=== PATIENT | female | born 1980 | race Caucasian/White ===

== ENCOUNTER → 2016-03-13 | Outpatient (CLI) | payer BC ==
[2016-03-13 12:44] LABS: ALT/SGPT 21 U/L (12-78); AST/SGOT 13 U/L (15-37); BLOOD UREA NITROGEN 21 mg/dl (7-18); BUN/CREATININE RATIO 22.7 (10-20); CARBON DIOXIDE 26 mmol/L (21-32); CHLORIDE 106 mmol/L (98-107); CHOLESTEROL 195 mg/dl (0-200); CREATININE 0.92 mg/dl (0.60-1.20); GLUCOSE 86 mg/dl (70-99); POTASSIUM 4.3 mmol/L (3.5-5.1); SODIUM 140 mmol/L (136-145)
[2016-03-13 12:55] LABS: ALB/GLOB RATIO 1.1 (0.9-2); ALKALINE PHOSPHATASE 60 U/L (45-117); CHOLESTEROL/HDL RATIO 2.6; HDL CHOLESTEROL 76 mg/dl; LDL CHOLESTEROL CALCULATED 108 mg/dl; TRIGLYCERIDES 53 mg/dl (0-150); VERY LOW DENSITY LIPOPROT CALC 11 mg/dl
== END | disposition home or self-care (01) ==
LOC: C.LABBFT 07:40
PROVIDERS: ATTEND Internal Medicine
DX: E78.5 Hyperlipidemia, unspecified (principal)

== ENCOUNTER → 2016-03-31 | Outpatient (CLI) | payer BC | END | disposition home or self-care (01) | LOC: C.PAPS 11:39 | PROVIDERS: ATTEND Obstetrics & Gynecology | DX: Z01.419 Encounter for gynecological examination (general) (routine) without abnormal findings (principal) ==

== ENCOUNTER → 2016-08-15 | Outpatient (CLI) | payer BC ==
[2016-08-18 02:02] LABS: CHLAMYDIA TRACH RNA*** NOT DETECTED (NOT DETECTED); GC (NEIS GONORRHOEAE)RNA** NOT DETECTED (NOT DETECTED)
== END | disposition home or self-care (01) ==
LOC: C.LABSPEC 17:23
PROVIDERS: ATTEND Physician Assistant
DX: Z30.430 Encounter for insertion of intrauterine contraceptive device (principal)

== ENCOUNTER → 2016-08-15 | Outpatient (CLI) | payer BC ==
[2016-08-15 09:38] LABS: PREG INTERNAL NEGATIVE QC NEG CLEAR BACKGROUND; PREG INTERNAL POSITIVE QC POS CONTROL LINE
== END | disposition home or self-care (01) ==
LOC: C.LAB1850 06:51
PROVIDERS: ATTEND Physician Assistant
DX: Z30.9 Encounter for contraceptive management, unspecified (principal)

== ENCOUNTER → 2017-09-17 | Outpatient (CLI) | payer BC | END | disposition home or self-care (01) | LOC: C.LAB1850 12:28 | PROVIDERS: ATTEND Obstetrics & Gynecology | DX: O09.522 Supervision of elderly multigravida, second trimester (principal) ==

== ENCOUNTER → 2017-09-18 | Outpatient (CLI) | payer BC ==
[2017-09-20 16:32] LABS: QUANTIF MITOGEN-NIL 8.22 IU/ML; QUANTIFERON NEGATIVE (NEGATIVE); QUANTIFERON NIL 0.02 IU/ML
== END | disposition home or self-care (01) ==
LOC: C.LABBC 11:23
PROVIDERS: ATTEND Family Medicine Adult Medicine
DX: Z00.00 Encounter for general adult medical examination without abnormal findings (principal)

== ENCOUNTER 2018-03-18 20:39 | Inpatient (IN) ==
[2018-03-18] MEDS ORDERED: LACTATED RINGER'S 1,000 ML IV PRN ×2 (22:06→22:11)
[2018-03-18] MEDS ORDERED: OXYTOCIN 30 UNITS/500 ML BAG IV PRN ×2 (22:06→22:11)
--- NOTE | 2018-03-18 22:22 | History & Physical Report ---
Date of Service March 18, 2018 Assessment & Plan (1) Post term : We will begin pitocin augmentation of her current contraction pattern that ranges from q 2minutes to 8 minutes apart anticipate vaginal Present on Admission?: Yes History of Present Illness Primary Care Provider: Андрей Spencer MD Patient is a 37 yo white female EDC 03/12/18 who presents with irregular contractions with no cervical change from last exam in the office last week. no blood show or SPROM. baby has been active. She was on for induction of labor on 03/20 because of post term . She was given the option of going home at this time, walking for 2 hours & having a repeat cervical check or starting pitocing induction now. Patient has elected to start pitocin induction now. GBS negative, blood type A(+) complicated by AMA & nephrolithiasis. Allergies Allergy/AdvReac Type Severity Reaction Status Date / Time No Known Allergies Allergy Unverified 03/18/18 21:42 Home Medications Home Medications Medication Instructions Recorded Confirmed Type vit-iron fum-folic ac 1 tab PO DAILY 03/18/18 03/18/18 History [ Vitamin] Patient History Medical History Anxiety IBS (irritable bowel syndrome) No significant past medical history Surgical History No significant past surgical history Social History marital status: Current Living Situation: Family current occupational status: employed Other Information That Helps Us Care for You: No Feels Safe at Home: Yes Safety Concerns: Feels Safe At This Time Smoking Status: Never smoker Hx Alcohol Use: No Hx Substance Use: No Beliefs That Will Affect Care: None Preferred Language: Persian Communication Ability: Effective Review of Systems All systems reviewed & are unremarkable except as noted in HPI & below Physical Exam 2 Vital Signs (Past 24 Hours): Last Vital Signs Temp 36.6 C 03/18/18 20:53 Pulse 90 03/18/18 20:54 Resp 20 03/18/18 20:53 BP 130/78 03/18/18 20:54 Constitutional: WD/WN, vitals as above Respiratory: normal respiratory effort, lungs clear to auscultation Cardiovascular: RRR, no murmur, no edema Genitourinary: OB Exam Abdomen: + estimated weight (7-8 pounfd) Manual OB Exam: + cervical dilation 2 cm, + cervical effacement 80% and + station (very posterior) -1 OB Exam Monitor Tracing: + external FHT monitor used, + external uterine monitor used, + category I and + normal FHT variability
[2018-03-18] MEDS: LACTATED RINGER'S 1,000 ML IV SCH (22:32)
[2018-03-18 22:34] LABS: Hematocrit (blood only) 33.4 % (37-47); Hemoglobin 11.1 g/dL (12.0-16.0); Mean Corpuscular Volume 87.4 fL (80-100); Mean Platelet Volume 9.3 fL (7.4-10.4); Platelet Count 220 K/uL (130-400); RDW Coefficient of Variation 14.3 % (11.5-14.5); RDW Standard Deviation 44.7 fL (36.4-46.3); Red Blood Count 3.82 M/uL (4.2-5.4); White Blood Count 10.19 K/uL (4.8-10.8)
[2018-03-18 22:54] LABS: Mean Corpuscular Hgb Conc 33.2 g/dL (32-36)
[2018-03-18] MEDS ORDERED: BUPIVACAINE 0.25% 30 ML VIAL ONE (23:22)
[2018-03-18] MEDS ORDERED: ePHEDrine sulfate 50 MG/ML AMP ONE (23:22)
[2018-03-18] MEDS ORDERED: fentaNYL 2MCG/ML ROPIV 1.25MG/ML 100 ML BAG EPI ONE (23:23)
[2018-03-18] MEDS ORDERED: fentaNYL citrate 100 MCG/2 ML VIAL ONE (23:23)
--- NOTE | 2018-03-18 23:46 | Anesthesiology Consultation ---
Date of Service March 18, 2018 Assessment & Plan (1) Encounter for pre-operative examination: Chart Review Chart Review: Acceptable Risk for Labor Epidural Consults Requested none ASA ASA2 Proposed Anesthesia Anesthesia Type: Labor Epidural Risk / Benefits Reviewed With: PT / POA / Parent / Guardian, Accepts Plan and Informed Consent Obtained History Height/Weight Height: 5 ft 8 in Weight: 87.543 kg Allergies Allergy/AdvReac Type Severity Reaction Status Date / Time No Known Allergies Allergy Unverified 03/18/18 21:42 Medications Home Medications Medication Instructions Recorded Confirmed Last Taken vit-iron fum-folic ac 1 tab PO DAILY 03/18/18 03/18/18 03/18/18 08:00 [ Vitamin] Active Medications Generic Name Dose Route Start Last Admin Trade Name Freq PRN Reason Stop Dose Admin Lactated Ringer's 1,000 mls @ 125 mls/hr 03/18/18 22:15 03/18/18 23:20 Lr IV 03/20/18 22:14 999 mls/hr .Q8H CHRISTINE Infusion Oxytocin 30 units in 500 mls @ 4 mls/hr 03/18/18 22:11 03/18/18 23:20 Pitocin IV 03/20/18 22:10 0.24 units/hr .Q24H PRN 4 mls/hr Labor Induction/Augmentation Titration Protocol 0.24 UNITS/HR Past Medical History Medical History Anxiety IBS (irritable bowel syndrome) No significant past medical history Past Surgical History Surgical History No significant past surgical history Past Anesthesia History No Hx of Anesthesia Complications and No Family Hx of Anesthesia Complications History of PONV No Motion Sickness Screening History of Motion Sickness: No Social History Smoking Status: Never smoker Hx Alcohol Use: No Hx Substance Use: No Exercise / Class Metabolic Activity II 4-5 Yardwork/Stairs/Walk up hill Physical Exam Vital Signs Last Vital Signs Temp 97.5 F L 03/18/18 22:50 Pulse 83 03/18/18 22:50 Resp 18 03/18/18 22:50 BP 111/61 03/18/18 22:50 ENMT Mouth: no dentition abnormality Thyromental Distance: > or= 3.5 Finger Breadths Mallampati Class: II Neck normal visual inspection Respiratory normal respiratory effort Auscultation: lungs clear to auscultation bilaterally Cardiovascular Rate/Rhythm: regular rate and regular rhythm Testing Laboratory Results 03/18/18 22:23
[2018-03-19] MEDS ORDERED: NALOXONE HCL 0.4 MG/1 ML VIAL/CARP IV PRN (00:10)
[2018-03-19] MEDS ORDERED: DiphenhydrAMINE HCL 50 MG/ML VIAL IV PRN (00:10)
[2018-03-19] MEDS ORDERED: NALBUPHINE HCL INJ 10 MG/ML AMP IV PRN (00:10)
[2018-03-19] MEDS ORDERED: NALOXONE HCL 1 MG in SODIUM CHLORIDE 0.9% 1000ML 1,000 ML IV PRN (00:10)
[2018-03-19] MEDS ORDERED: ePHEDrine sulfate 50 MG/ML AMP IV PRN (00:10)
[2018-03-19] MEDS ORDERED: ONDANSETRON INJ 2 MG/ML 2 ML VIAL IV PRN (00:10)
[2018-03-19] MEDS ORDERED: LACTATED RINGER'S 1,000 ML IV PRN (00:10)
[2018-03-19] MEDS: LACTATED RINGER'S 1,000 ML IV SCH ×2 (00:20→07:58)
[2018-03-19] MEDS: fentaNYL 2MCG/ML ROPIV 1.25MG/ML 100 ML BAG EPI PRN ×3 (04:11→07:01)
[2018-03-19] MEDS ORDERED: Nursing to Pharmacy Communication ONE (04:17)
[2018-03-19] MEDS ORDERED: fentaNYL citrate 100 MCG/2 ML VIAL ONE ×2 (05:09→07:28)
[2018-03-19] MEDS ORDERED: fentaNYL citrate 100 MCG/2 ML VIAL IV STA (06:56)
[2018-03-19] MEDS ORDERED: BUPIVACAINE 0.25% 30 ML VIAL ONE ×2 (07:22→11:10)
--- NOTE | 2018-03-19 10:09 | Obstetrical Progress Note ---
Date of Service March 19, 2018 Assessment & Plan (1) Post term : pushing effectively in 2nd stage. suspect OP presentation. would like to have her change positions but epidural causing alot of lack of motor fxn in right leg. fhts categ 2. Subjective pushing effectively Physical Exam 2 Vital Signs (Past 24 Hours): Last Vital Signs Temp 36.6 C 03/19/18 09:00 Pulse 101 H 03/19/18 10:02 Resp 20 03/19/18 09:00 BP 105/61 03/19/18 09:55 Pulse Ox 93 03/19/18 10:02 Genitourinary: Manual OB Exam: + cervical dilation 10 cm, + cervical effacement 100% and + station + 3 OB Exam Monitor Tracing: + external FHT monitor used (150 moderate variability), + early decelerations present and + variable decelerations
[2018-03-19] MEDS ORDERED: BENZOCAINE 20% AER SPR 82.5 GM CAN EXT PRN (13:23)
[2018-03-19] MEDS ORDERED: OXYTOCIN 30 UNITS/500 ML BAG IV PRN (13:23)
[2018-03-19] MEDS ORDERED: HYDROCORTISONE ACETATE 25 MG SUPP PR PRN (13:23)
[2018-03-19] MEDS ORDERED: SUPERCREAM 0.870% 15 GM JAR EXT PRN (13:23)
[2018-03-19] MEDS ORDERED: OXYTOCIN 20 UNITS in LACTATED RINGER'S 1,000 ML IV SCH (13:23)
[2018-03-19] MEDS ORDERED: ACETAMINOPHEN 325 MG TAB PO PRN (13:23)
[2018-03-19] MEDS ORDERED: OXYCODONE/ACETAMINOPHEN 5mg/325mg TAB PO PRN (13:23)
[2018-03-19] MEDS ORDERED: miSOPROStol 200 MCG TAB PR ONE (13:23)
[2018-03-19] MEDS ORDERED: DIPHTHERIA/TETANUS/PERTUSSIS 0.5 ML SYR/VIAL IM ONE (13:23)
--- NOTE | 2018-03-19 13:42 | Delivery Summary ---
DATE OF OPERATION: 03/19/2018 The patient had dilated to complete and was pushing for more than 4 hours to deliver a viable female , Apgars 8 and 9 via over a small vaginal laceration from the ROP position. Mouth and nose bulb suctioned at the perineum, and shoulders and body delivered with ease. vigorous and crying at . Cord was clamped at 30 seconds of life and to maternal abdomen where the cord was then doubly clamped and cut. Placenta delivered spontaneous and intact, 3-vessel cord. Hemostasis inadequate with dilute Pitocin alone, and therefore, 800 mcg of rectal Cytotec administered. The bladder had been drained under sterile conditions for 150 mL of urine. Hemostasis was becoming adequate. The cervix and sulci were intact. The vaginal laceration was reapproximated with 3-0 Vicryl in the usual fashion. EBL 300 mL. Mother and baby stable in recovery. I attest to the content of the Intraoperative Record and any orders documented therein. Any exception s are noted below.
--- NOTE | 2018-03-19 14:36 | Anesthesia Procedure Note ---
Date of Service March 19, 2018 Anesthesia Post Epidural Note Vital Signs Vital Signs: Temp Pulse Resp BP Pulse Ox 03/19/18 14:25 100 H 128/72 03/19/18 13:55 95 H 125/69 03/19/18 13:40 88 122/74 03/19/18 13:25 76 119/72 03/19/18 13:10 79 113/71 03/19/18 13:09 20 03/19/18 12:55 81 121/63 03/19/18 12:54 20 03/19/18 12:41 99 H 114/58 L 03/19/18 12:40 20 03/19/18 12:25 80 130/62 03/19/18 12:17 108 H 95 03/19/18 12:12 85 95 03/19/18 12:11 77 93/51 L 03/19/18 12:09 75 93 03/19/18 12:07 111 H 94 03/19/18 12:03 81 92 03/19/18 12:02 85 95 03/19/18 11:57 86 96 03/19/18 11:56 100 H 162/83 H 03/19/18 11:52 114 H 84 L 03/19/18 11:46 93 H 90 03/19/18 11:45 89 96 03/19/18 11:40 99 H 111/60 03/19/18 11:38 80 95 03/19/18 11:34 116 H 93 03/19/18 11:33 95 H 95 03/19/18 11:29 96 H 92 03/19/18 11:28 113 H 97 03/19/18 11:26 95 H 108/57 L 03/19/18 11:23 108 H 97 03/19/18 11:21 94 H 93 03/19/18 11:18 99 H 95 03/19/18 11:16 36.6 C 03/19/18 11:15 94 H 92 03/19/18 11:13 97 H 97 03/19/18 11:10 100 H 108/59 L 03/19/18 11:08 99 H 97 03/19/18 11:03 95 H 96 03/19/18 10:58 96 H 98 03/19/18 10:52 96 H 98 03/19/18 10:47 98 H 97 03/19/18 10:45 98 H 94 03/19/18 10:42 86 98 03/19/18 10:37 88 97 03/19/18 10:32 94 H 97 03/19/18 10:30 97 H 92 03/19/18 10:27 91 H 97 03/19/18 10:26 83 106/58 L 03/19/18 10:23 101 H 93 03/19/18 10:22 98 H 96 03/19/18 10:17 92 H 98 03/19/18 10:12 77 95 03/19/18 10:10 72 109/71 03/19/18 10:08 83 94 03/19/18 10:07 78 95 03/19/18 10:02 101 H 93 03/19/18 09:57 101 H 98 03/19/18 09:55 69 105/61 03/19/18 09:52 105 H 100 03/19/18 09:48 89 92 03/19/18 09:47 89 94 03/19/18 09:42 101 H 99 03/19/18 09:40 90 109/59 L 03/19/18 09:37 88 99 03/19/18 09:32 102 H 100 03/19/18 09:29 81 91 03/19/18 09:27 89 99 03/19/18 09:26 89 109/68 03/19/18 09:23 82 92 03/19/18 09:22 81 98 03/19/18 09:17 81 97 03/19/18 09:12 89 98 03/19/18 09:11 87 115/59 L 03/19/18 09:07 77 99 03/19/18 09:02 78 98 03/19/18 09:00 36.6 C 20 03/19/18 08:57 84 98 03/19/18 08:56 90 115/63 03/19/18 08:53 71 101/54 L 03/19/18 08:52 90 96 03/19/18 08:47 80 99 03/19/18 08:42 102 H 98 03/19/18 08:37 87 100 03/19/18 08:32 81 98 03/19/18 08:27 95 H 98 03/19/18 08:26 89 117/69 03/19/18 08:22 88 98 03/19/18 08:17 97 H 99 03/19/18 08:14 97 H 93 03/19/18 08:12 77 97 03/19/18 08:11 90 101/65 03/19/18 08:07 89 99 03/19/18 08:02 101 H 98 03/19/18 07:57 94 H 100 03/19/18 07:55 83 125/63 03/19/18 07:52 85 113/61 100 03/19/18 07:50 83 114/61 03/19/18 07:48 101 H 117/58 L 03/19/18 07:47 99 H 148/91 H 100 03/19/18 07:45 66 102/53 L 03/19/18 07:42 67 97 03/19/18 07:40 100 H 104/67 93 03/19/18 07:38 78 114/65 03/19/18 07:37 71 98 03/19/18 07:36 118/78 03/19/18 07:34 71 118/73 03/19/18 07:32 101 H 113/73 95 03/19/18 07:29 69 114/72 03/19/18 07:27 79 98 03/19/18 07:26 67 114/72 03/19/18 07:22 70 98 03/19/18 07:17 80 96 03/19/18 07:14 78 116/71 03/19/18 07:12 86 98 03/19/18 07:07 85 99 03/19/18 07:04 80 111/60 03/19/18 07:02 67 98 03/19/18 07:00 36.6 C 16 03/19/18 06:58 85 119/64 03/19/18 06:57 84 98 03/19/18 06:52 66 97 03/19/18 06:47 73 96 03/19/18 06:45 77 121/59 L 03/19/18 06:42 79 97 03/19/18 06:37 77 99 03/19/18 06:32 81 99 03/19/18 06:30 18 03/19/18 06:28 74 103/58 L 03/19/18 06:27 76 99 03/19/18 06:22 78 97 03/19/18 06:17 74 96 03/19/18 06:13 78 95/56 L 03/19/18 06:12 63 95 03/19/18 06:07 66 95 03/19/18 06:06 66 94 03/19/18 06:02 81 97 03/19/18 05:58 75 18 101/53 L 03/19/18 05:57 73 96 03/19/18 05:54 72 94 03/19/18 05:52 70 96 03/19/18 05:49 67 94 03/19/18 05:47 71 97 03/19/18 05:43 82 110/52 L 03/19/18 05:42 78 98 03/19/18 05:37 73 97/61 L 98 03/19/18 05:32 78 131/66 97 03/19/18 05:30 18 03/19/18 05:27 75 132/55 L 97 03/19/18 05:24 92 H 103/62 03/19/18 05:22 81 122/72 96 03/19/18 05:21 80 109/78 03/19/18 05:18 85 106/66 03/19/18 05:17 86 96 03/19/18 05:16 78 119/75 03/19/18 05:12 79 99 03/19/18 05:07 88 95 03/19/18 05:02 69 98 03/19/18 04:58 86 18 107/57 L 03/19/18 04:57 89 95 03/19/18 04:56 67 94 03/19/18 04:52 66 97 03/19/18 04:48 77 93 03/19/18 04:47 76 96 03/19/18 04:44 73 115/62 03/19/18 04:42 63 97 03/19/18 04:37 61 97 03/19/18 04:36 81 94 03/19/18 04:32 68 97 03/19/18 04:30 55 L 18 115/55 L 94 03/19/18 04:27 93 H 96 03/19/18 04:22 73 98 03/19/18 04:17 69 96 03/19/18 04:13 83 107/66 03/19/18 04:12 87 96 03/19/18 04:07 69 99 03/19/18 04:02 79 98 03/19/18 03:58 76 108/62 03/19/18 03:57 70 98 03/19/18 03:52 79 97 03/19/18 03:47 79 98 03/19/18 03:43 87 112/55 L 03/19/18 03:42 73 98 03/19/18 03:37 75 97 03/19/18 03:32 88 97 03/19/18 03:30 71 112/62 03/19/18 03:27 78 97 03/19/18 03:22 69 95 03/19/18 03:17 68 97 03/19/18 03:13 83 102/61 03/19/18 03:12 77 97 03/19/18 03:07 86 97 03/19/18 03:02 83 97 03/19/18 03:00 18 03/19/18 02:58 76 106/63 03/19/18 02:57 69 96 03/19/18 02:52 77 95 03/19/18 02:47 84 97 03/19/18 02:44 70 106/59 L 03/19/18 02:42 78 96 03/19/18 02:37 79 97 03/19/18 02:32 80 96 03/19/18 02:30 36.7 C 03/19/18 02:29 74 18 98/54 L 03/19/18 02:28 79 94 03/19/18 02:27 86 96 03/19/18 02:22 78 96 03/19/18 02:17 86 97 03/19/18 02:13 96 H 102/61 03/19/18 02:12 68 95 03/19/18 02:07 103 H 97 03/19/18 02:02 77 96 03/19/18 02:00 18 03/19/18 01:59 97 H 94/59 L 03/19/18 01:57 81 97 03/19/18 01:52 89 96 03/19/18 01:48 78 93 03/19/18 01:47 90 96 03/19/18 01:43 82 106/57 L 03/19/18 01:42 80 95 03/19/18 01:41 82 94 03/19/18 01:37 72 95 03/19/18 01:34 76 94 03/19/18 01:32 91 H 97 03/19/18 01:30 18 03/19/18 01:28 96 H 104/57 L 03/19/18 01:27 93 H 94 03/19/18 01:22 78 96 03/19/18 01:17 79 96 03/19/18 01:15 80 94 03/19/18 01:13 90 112/60 03/19/18 01:12 89 96 03/19/18 01:07 76 97 03/19/18 01:02 86 97 03/19/18 01:00 20 03/19/18 00:59 99 H 116/75 03/19/18 00:57 79 96 03/19/18 00:52 80 96 03/19/18 00:47 87 97 03/19/18 00:44 82 114/70 03/19/18 00:42 80 95 03/19/18 00:37 79 97 03/19/18 00:32 91 H 97 03/19/18 00:30 36.7 C 18 03/19/18 00:28 87 127/71 03/19/18 00:27 80 97 03/19/18 00:25 20 03/19/18 00:24 81 117/71 03/19/18 00:22 98 H 96 03/19/18 00:20 20 03/19/18 00:18 88 110/66 94 03/19/18 00:17 98 H 96 03/19/18 00:16 95 H 112/73 03/19/18 00:15 20 03/19/18 00:14 79 111/74 03/19/18 00:12 94 H 110/69 96 03/19/18 00:10 95 H 18 114/68 03/19/18 00:08 81 119/68 03/19/18 00:07 79 122/80 98 03/19/18 00:05 18 03/19/18 00:04 94 H 143/81 H 03/19/18 00:02 121 H 98 03/18/18 23:57 92 H 100 03/18/18 23:52 99 H 100 03/18/18 23:47 98 H 98 03/18/18 23:45 87 120/73 03/18/18 22:50 36.4 C L 83 18 111/61 03/18/18 20:54 90 130/78 03/18/18 20:53 36.6 C 90 20 130/78 Pain Intensity Bilateral Back: Pain Intensity: 0 Notes Mental Status: alert / awake / arousable Patient Amnestic to Procedure: No Nausea / Vomiting: adequately controlled Pain: adequately controlled Airway Patency, RR, SpO2: stable & adequate BP & HR: stable & adequate Hydration State: stable & adequate Anesthetic Complications: no major complications apparent Epidural: Removed without complications and With tip intact Notes: Pt doing well. Epidural site looks clean/dry/intact. No signs of edema or erythema.
[2018-03-19] MEDS: IBUPROFEN 600 MG TAB PO PRN ×2 (15:12→22:08)
[2018-03-19] MEDS: DOCUSATE SODIUM 100 MG CAP PO SCH (22:07)
[2018-03-20] MEDS: IBUPROFEN 600 MG TAB PO PRN ×5 (02:11→20:48)
--- NOTE | 2018-03-20 06:29 | Obstetrical Progress Note ---
Date of Service <Benja Becerra MD - Last Filed: 03/20/18 06:49> March 20, 2018 Assessment & Plan <Benja Becerra MD - Last Filed: 03/20/18 06:49> (1) Encounter for induction of labor: Leah is a 37 yo white female EDC 03/12/18 who presented with irregular contractions with no cervical change from last exam in the office and underwent induction of labor now s/p NIVD PPD#1. -GBS negative, blood type A(+) complicated by AMA & nephrolithiasis. - Feels well today. Eating well, voiding well, ambulating well. - Some breast tenderness, no signs of mastitis. Recommend routine breast care, salves/ice if needed. - Pain well controlled with ibuprofen 600mg Q4H PRN. - Routine care - After discharge will have [address] Meier. (2) Post-term , 40-42 weeks of gestation: Subjective <Benja Becerra MD - Last Filed: 03/20/18 06:49> Ambulation: ambulating normally Voiding: no voiding problems Passing Gas:: Yes Diet Tolerance:: regular diet Lochia:: Moderate (about equal to a period, red) Feeding Type:: breast feeding Current Pain Level(1-10): 3 Review of Systems Denies fever, chills, sweats Denies shortness of breath, difficulty breathing, chest pain, palpitations, chest pressure. Denies breast pain. Denies dysuria. Denies headache. Physical Exam <Benja Becerra MD - Last Filed: 03/20/18 06:49> Vital Signs (Past 24 Hours) Last Vital Signs Temp 36.6 C 03/20/18 03:45 Pulse 73 03/20/18 03:45 Resp 18 03/20/18 03:45 BP 114/62 03/20/18 03:45 Pulse Ox 95 03/19/18 12:17 General: Alert, oriented. No acute distress. Cardiac: Regular rate and rhythm, no murmurs/rubs/gallops. Respiratory: Clear to auscultation anterior and posteriorly, no wheezes/rales/ rhonchi. No increased work of breathing. Symmetrical chest rise. No respiratory distress. Abdomen: Soft, nontender, nondistended. Bowel sounds present. Uterus: Uterine fundus firm, palpable 2-3cm below umbilicus. Lower Extremities: No lower extremity edema or swelling. No deep calf pain. Dustin's negative bilaterally. Results & Data <Benja Becerra MD - Last Filed: 03/20/18 06:49> Medications Administered Current Inpatient Medications Acetaminophen (Tylenol) 650 mg PO Q6H PRN PRN Reason: Pain/LEONARD/Fever Stop: 04/18/18 13:22 Benzocaine (Dermoplast Pain Relieving [place]) 1 appln EXT PRN PRN PRN Reason: Perineal Discomfort Stop: 04/18/18 13:22 Last Admin: 03/19/18 16:17 Dose: 82.5 appln Cocaine HCl (Supercream 0.870%) 1 gm EXT BID PRN PRN Reason: Hemorrhoidal Inflammation Stop: 04/02/18 13:22 Docusate Sodium (Colace) 100 mg PO BID [facility] Stop: 04/18/18 20:59 Last Admin: 03/19/18 22:07 Dose: 100 mg Hydrocortisone (Anusol Hc) 25 mg CA BID PRN PRN Reason: Hemorrhoidal Inflammation Stop: 04/18/18 13:22 Oxytocin 20 units/ Lactated (Ringer's) 1,002 mls @ 125 mls/hr IV .Q8H1M [facility] Stop: 04/18/18 13:22 Last Infusion: 03/19/18 23:30 Dose: Infused Oxytocin (Pitocin) 30 units in 500 mls @ 333.333 mls/hr IV .Q1H30M PRN; Protocol PRN Reason: BLEEDING CONTROL Stop: 04/18/18 13:22 Ibuprofen (Motrin) 600 mg PO Q4H PRN PRN Reason: Pain/LEONARD/Cramping/Fever Stop: 04/18/18 13:22 Last Admin: 03/20/18 02:11 Dose: 600 mg Oxycodone/Acetaminophen (Percocet 5mg/325mg) 1 tab PO Q4H PRN PRN Reason: Pain not relieved by... Stop: 04/02/18 13:22 Last Admin: 03/19/18 16:20 Dose: 1 tab Prenat Multivit/Investigative Writer/Iron/Folic Ac ( Vitamin) [facility] Stop: 04/19/18 08:59 <Aleshia Meier MD, FACOG - Last Filed: 03/20/18 06:53> Co-Signing Physician Notes Resident Physician Supervision Note: I was present with Dr. Becerra during the history and exam. I discussed the case with the resident and agree with the findings and plan as documented in the note. Any exceptions or clarifications are listed here: doing well. breast feeding. routine care. Documented By: Aleshia Meier MD, FACOG Resident Activity Tracking <Benja Becerra MD - Last Filed: 03/20/18 06:49> Resident Involvement: Resident Care Provided Care Provided: Adult Hospital Medicine
[2018-03-20] MEDS: DOCUSATE SODIUM 100 MG CAP PO SCH ×2 (08:39→20:47)
[2018-03-20] MEDS: PRENATAL VITAMIN 1 TAB PO SCH (08:39)
[2018-03-21] MEDS: IBUPROFEN 600 MG TAB PO PRN (00:56)
--- NOTE | 2018-03-21 06:55 | Obstetrical Progress Note ---
Date of Service <Benja Becerra MD - Last Filed: 03/21/18 06:55> March 21, 2018 Assessment & Plan <Benja Becerra MD - Last Filed: 03/21/18 06:55> (1) Encounter for induction of labor: Leah is a 37 yo white female EDC 03/12/18 who presented with irregular contractions with no cervical change from last exam in the office and underwent induction of labor now s/p NIVD PPD#2. -GBS negative, blood type A(+) complicated by AMA & nephrolithiasis. - Feels well today. Eating well, voiding well, ambulating well. - Some breast tenderness, no signs of mastitis. Recommend routine breast care, salves/ice if needed. - Pain well controlled with ibuprofen 600mg Q4H PRN. - Routine care - After discharge will have [address] Meier. - Discharge counseling provided (2) Post-term , 40-42 weeks of gestation: Subjective <Benja Becerra MD - Last Filed: 03/21/18 06:55> Ambulation: ambulating normally Voiding: no voiding problems Passing Gas:: Yes Diet Tolerance:: regular diet Lochia:: Small Feeding Type:: breast feeding Current Pain Level(1-10): 5 Review of Systems Denies fever, chills, sweats Denies shortness of breath, difficulty breathing, chest pain, palpitations, chest pressure. Denies breast pain. Denies dysuria. Denies headache. Physical Exam <Benja Becerra MD - Last Filed: 03/21/18 06:55> Vital Signs (Past 24 Hours) Last Vital Signs Temp 36.7 C 03/20/18 20:45 Pulse 74 03/20/18 20:45 Resp 18 03/20/18 20:45 BP 112/73 03/20/18 20:45 Pulse Ox 95 03/19/18 12:17 General: Alert, oriented. No acute distress. Cardiac: Regular rate and rhythm, no murmurs/rubs/gallops. Respiratory: Clear to auscultation anterior and posteriorly, no wheezes/rales/ rhonchi. No increased work of breathing. Symmetrical chest rise. No respiratory distress. Abdomen: Soft, nontender, nondistended. Bowel sounds present. Uterus: Uterine fundus firm, palpable 2-3cm below umbilicus. Lower Extremities: No lower extremity edema or swelling. No deep calf pain. Dustin's negative bilaterally. <Jhon Martinez MD, FACOG - Last Filed: 03/22/18 11:33> Co-Signing Physician Notes Resident Physician Supervision Note: I interviewed and examined the patient. Discussed with Dr. Becerra and agree with findings and plan as documented in the note. Any exceptions or clarifications are listed here: [None] Documented By: Jhon Martinez MD, FACOG Resident Activity Tracking <Benja Becerra MD - Last Filed: 03/21/18 06:55> Resident Involvement: Resident Care Provided Care Provided: Adult Hospital Medicine
[2018-03-21] MEDS: PRENATAL VITAMIN 1 TAB PO SCH (08:38)
[2018-03-21] MEDS: DOCUSATE SODIUM 100 MG CAP PO SCH (08:38)
== END 2018-03-21 13:45 | disposition home or self-care (01) | DRG 807 ==
LOC: OPB 20:39 → 4S1 20:41 → 4S2 03-19 15:25